=== PATIENT | female | born 1990 | race African-American/Black ===

== ENCOUNTER 2020-01-14 21:12 | Emergency (ER) | payer OTHER ==
[2020-01-14 21:22] VITALS: BP 104/67; PULSE 62; TEMP 98.3; BMI 21.7
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
[2020-01-14] MEDS ORDERED: IBUPROFEN 600 MG TABLET (FP) PO ONE ×2 (22:18→22:19)
== END 2020-01-14 22:22 | disposition home or self-care (01) ==
LOC: JERFT 21:12
DX: S63.8X1A Sprain of other part of right wrist and hand, initial encounter (principal); S60.511A Abrasion of right hand, initial encounter; X50.9XXA Other and unspecified overexertion or strenuous movements or postures, initial encounter; Y93.52 Activity, horseback riding; Y92.038 Other place in apartment as the place of occurrence of the external cause; Y99.8 Other external cause status
CPT/HCPCS: 73130-TC-RT-FY; 99283-25